=== PATIENT | male | born 1985 | race Caucasian/White ===

== ENCOUNTER 2017-11-04 16:38 | Emergency (ER) | payer SELFPAY ==
[~2017-11-04] VITALS: Ht 180.3 cm; Wt 64.2 kg
[2017-11-04 16:39] VITALS: BP 134/84
[2017-11-04] MEDS ORDERED: MAALOX/HYOSCYAMINE/LIDOCAINE 45 ML BTL PO ONE (17:00)
== END 2017-11-04 17:47 | disposition left against medical advice (07) ==
LOC: ED 17:00
DX: K21.9 Gastro-esophageal reflux disease without esophagitis (principal)
CPT/HCPCS: 99281

== ENCOUNTER 2018-01-18 03:28 | Emergency (ER) | payer SELFPAY ==
[~2018-01-18] VITALS: Ht 180.3 cm; Wt 63.1 kg
[2018-01-18 03:29] VITALS: BP 157/125
== END 2018-01-18 03:35 | disposition left against medical advice (07) ==
LOC: ED 03:33
DX: R10.9 Unspecified abdominal pain (principal); Z53.21 Procedure and treatment not carried out due to patient leaving prior to being seen by health care provider

== ENCOUNTER 2018-01-26 00:18 | Emergency (ER) | payer SELFPAY ==
[~2018-01-26] VITALS: Ht 165.1 cm; Wt 66.0 kg
[2018-01-26 00:26] VITALS: BP 122/90
== END 2018-01-26 01:14 | disposition home or self-care (01) ==
LOC: ED 00:57
DX: F10.129 Alcohol abuse with intoxication, unspecified (principal); F17.200 Nicotine dependence, unspecified, uncomplicated
CPT/HCPCS: 99283

== ENCOUNTER 2018-01-26 22:35 | Emergency (ER) | payer SELFPAY ==
[~2018-01-26] VITALS: Ht 180.3 cm; Wt 59.5 kg
[2018-01-26 22:39] VITALS: BP 126/87
== END 2018-01-26 23:10 | disposition home or self-care (01) ==
LOC: ED 23:04
DX: Z00.00 Encounter for general adult medical examination without abnormal findings (principal); F10.20 Alcohol dependence, uncomplicated
CPT/HCPCS: 99283

== ENCOUNTER 2018-07-01 06:03 | Emergency (ER) | payer OTHER ==
[~2018-07-01] VITALS: Ht 180.3 cm; Wt 59.5 kg
[2018-07-01 06:10] VITALS: BP 129/77
== END 2018-07-01 10:02 | disposition home or self-care (01) ==
LOC: ED 09:30
DX: S00.03XA Contusion of scalp, initial encounter (principal); F10.10 Alcohol abuse, uncomplicated; W19.XXXA Unspecified fall, initial encounter; Y93.89 Activity, other specified; Y92.410 Unspecified street and highway as the place of occurrence of the external cause; Y99.8 Other external cause status
CPT/HCPCS: 70450; 70486; 99284

== ENCOUNTER 2018-07-02 02:33 | Emergency (ER) | payer OTHER ==
[~2018-07-02] VITALS: Ht 180.3 cm; Wt 62.0 kg
[2018-07-02 02:35] VITALS: BP 136/84
== END 2018-07-02 03:51 | disposition left against medical advice (07) ==
LOC: ED 03:44
DX: R51 Headache (principal); Z53.21 Procedure and treatment not carried out due to patient leaving prior to being seen by health care provider

== ENCOUNTER 2018-07-06 20:51 | Emergency (ER) | payer OTHER ==
[2018-07-06 20:54] VITALS: BP 134/88
== END 2018-07-06 21:05 | disposition left against medical advice (07) ==
LOC: ED 20:55
DX: R51 Headache (principal); Z53.21 Procedure and treatment not carried out due to patient leaving prior to being seen by health care provider

== ENCOUNTER 2018-07-09 22:09 | Emergency (ER) | payer OTHER ==
[~2018-07-09] VITALS: Ht 180.3 cm; Wt 62.5 kg
[2018-07-09 22:11] VITALS: BP 133/88
== END 2018-07-09 22:48 | disposition home or self-care (01) ==
LOC: ED 22:42
DX: R19.7 Diarrhea, unspecified (principal); Z72.9 Problem related to lifestyle, unspecified; F17.200 Nicotine dependence, unspecified, uncomplicated
CPT/HCPCS: 99281

== ENCOUNTER 2018-07-17 10:40 | Emergency (ER) | payer SELFPAY ==
[~2018-07-17] VITALS: Ht 180.3 cm; Wt 62.3 kg
[2018-07-17 10:58] VITALS: BP 113/79
[2018-07-17] MEDS ORDERED: ACETAMINOPHEN 500 MG TABLET PO ONE (13:30)
== END 2018-07-17 13:43 | disposition home or self-care (01) ==
LOC: ED 13:40
DX: I10 Essential (primary) hypertension (principal); F15.10 Other stimulant abuse, uncomplicated
CPT/HCPCS: 99282

== ENCOUNTER 2018-07-18 03:21 | Emergency (ER) | payer SELFPAY ==
[~2018-07-18] VITALS: Ht 180.3 cm; Wt 67.0 kg
[2018-07-18 03:25] VITALS: BP 140/95
== END 2018-07-18 03:52 | disposition home or self-care (01) ==
LOC: ED 03:40
DX: F15.10 Other stimulant abuse, uncomplicated (principal); Z72.9 Problem related to lifestyle, unspecified
CPT/HCPCS: 99283; Q0177

== ENCOUNTER 2018-07-18 04:56 | Emergency (ER) | payer SELFPAY ==
[~2018-07-18] VITALS: Ht 170.2 cm; Wt 54.5 kg
[2018-07-18 05:01] VITALS: BP 132/90
== END 2018-07-18 05:54 | disposition home or self-care (01) ==
LOC: ED 05:48
DX: F41.1 Generalized anxiety disorder (principal); F15.10 Other stimulant abuse, uncomplicated; Z72.9 Problem related to lifestyle, unspecified
CPT/HCPCS: 99284

== ENCOUNTER 2018-07-18 13:39 | Emergency (ER) | payer SELFPAY ==
[~2018-07-18] VITALS: Ht 177.8 cm; Wt 60.0 kg
[2018-07-18 13:50] VITALS: BP 132/85
[2018-07-18] MEDS ORDERED: PLEASE ENTER HEIGHT AND WEIGHT MC SCH (14:00)
== END 2018-07-18 15:05 | disposition home or self-care (01) ==
LOC: ED 14:45
DX: F41.1 Generalized anxiety disorder (principal); F15.10 Other stimulant abuse, uncomplicated; Z72.9 Problem related to lifestyle, unspecified; F17.200 Nicotine dependence, unspecified, uncomplicated
CPT/HCPCS: 99284; Q0177

== ENCOUNTER 2018-07-20 00:41 | Emergency (ER) | payer SELFPAY ==
[~2018-07-20] VITALS: Ht 165.1 cm; Wt 60.4 kg
[2018-07-20 00:44] VITALS: BP 119/79
[2018-07-20] MEDS ORDERED: BACITRACIN ZINC OINT 500U/GM, 0.9 GM ONE (01:09)
[2018-07-20] MEDS ORDERED: IBUPROFEN 200 MG TABLET PO ONE (01:30)
[2018-07-20] MEDS ORDERED: DIPHENHYDRAMINE 25 MG CAPSULE PO ONE (01:30)
== END 2018-07-20 01:28 | disposition home or self-care (01) ==
LOC: ED 00:53
DX: G43.C1 Periodic headache syndromes in child or adult, intractable (principal); Z72.9 Problem related to lifestyle, unspecified; F41.1 Generalized anxiety disorder
CPT/HCPCS: 99283

== ENCOUNTER 2018-07-22 00:10 | Emergency (ER) | payer OTHER ==
[~2018-07-22] VITALS: Ht 170.2 cm; Wt 61.2 kg
[2018-07-22 00:12] VITALS: BP 119/79
[2018-07-22] MEDS ORDERED: ACETAMINOPHEN 325 MG TABLET ONE (00:22)
[2018-07-22] MEDS ORDERED: ACETAMINOPHEN 325 MG TABLET PO ONE (00:30)
== END 2018-07-22 00:35 | disposition home or self-care (01) ==
LOC: ED 00:30
DX: S00.93XA Contusion of unspecified part of head, initial encounter (principal); S40.012A Contusion of left shoulder, initial encounter; F41.1 Generalized anxiety disorder; Z72.9 Problem related to lifestyle, unspecified; X58.XXXA Exposure to other specified factors, initial encounter; Y93.89 Activity, other specified; Y92.89 Other specified places as the place of occurrence of the external cause; Y99.8 Other external cause status
CPT/HCPCS: 99283

== ENCOUNTER 2018-07-22 21:48 | Emergency (ER) | payer OTHER ==
[~2018-07-22] VITALS: Ht 180.3 cm; Wt 59.5 kg
[2018-07-22] MEDS ORDERED: ALBUTEROL/IPRATROPIUM 2.5MG/0.5MG, 3 ML ONE (22:51)
== END 2018-07-22 22:58 | disposition left against medical advice (07) ==
LOC: ED 22:40
DX: L98.9 Disorder of the skin and subcutaneous tissue, unspecified (principal); Z53.21 Procedure and treatment not carried out due to patient leaving prior to being seen by health care provider

== ENCOUNTER 2018-07-23 07:46 | Emergency (ER) | payer OTHER ==
[~2018-07-23] VITALS: Ht 180.3 cm; Wt 60.2 kg
== END 2018-07-23 07:55 | disposition left against medical advice (07) ==
LOC: ED 07:48
DX: R68.89 Other general symptoms and signs (principal); Z53.21 Procedure and treatment not carried out due to patient leaving prior to being seen by health care provider

== ENCOUNTER 2018-07-23 18:02 | Emergency (ER) | payer OTHER ==
[~2018-07-23] VITALS: Ht 180.3 cm; Wt 54.0 kg
[2018-07-23 18:10] VITALS: BP 139/76
[2018-07-23] MEDS ORDERED: ACETAMINOPHEN 500 MG TABLET ONE (18:28)
[2018-07-23] MEDS ORDERED: ACETAMINOPHEN 500 MG TABLET PO ONE (18:30)
== END 2018-07-23 19:23 | disposition home or self-care (01) ==
LOC: ED 19:00
DX: R07.89 Other chest pain (principal); F15.10 Other stimulant abuse, uncomplicated; F17.200 Nicotine dependence, unspecified, uncomplicated
CPT/HCPCS: 71045; 93005; 99284

== ENCOUNTER 2018-07-26 01:27 | Emergency (ER) | payer OTHER ==
[~2018-07-26] VITALS: Ht 170.2 cm; Wt 71.0 kg
[2018-07-26 01:29] VITALS: BP 132/88
[2018-07-26] MEDS ORDERED: ACETAMINOPHEN 500 MG TABLET PO ONE (02:00)
[2018-07-26] MEDS ORDERED: ACETAMINOPHEN 500 MG TABLET ONE (02:02)
== END 2018-07-26 02:18 | disposition home or self-care (01) ==
LOC: ED 01:31
DX: G44.319 Acute post-traumatic headache, not intractable (principal); F17.200 Nicotine dependence, unspecified, uncomplicated
CPT/HCPCS: 99283

== ENCOUNTER 2018-07-27 01:41 | Emergency (ER) | payer OTHER | END 2018-07-27 01:48 | disposition left against medical advice (07) | LOC: ED 01:42 | DX: R07.2 Precordial pain (principal); Z53.21 Procedure and treatment not carried out due to patient leaving prior to being seen by health care provider ==

== ENCOUNTER 2018-08-02 14:40 | Emergency (ER) | payer SELFPAY ==
[~2018-08-02] VITALS: Ht 167.6 cm; Wt 70.0 kg
[2018-08-02 14:47] VITALS: BP 124/89
[2018-08-02] MEDS ORDERED: OXYMETAZOLINE NASAL SPRAY 0.05%, 15ML ONE (14:54)
== END 2018-08-02 15:28 | disposition home or self-care (01) ==
LOC: ED 15:22
DX: R04.0 Epistaxis (principal); F41.9 Anxiety disorder, unspecified
CPT/HCPCS: 30901; 99284

== ENCOUNTER 2018-08-07 02:01 | Emergency (ER) | payer OTHER | END 2018-08-07 02:05 | disposition left against medical advice (07) | LOC: ED 02:02 | DX: Z53.21 Procedure and treatment not carried out due to patient leaving prior to being seen by health care provider (principal) ==

== ENCOUNTER 2018-09-05 01:56 | Emergency (ER) | payer SELFPAY | END 2018-09-05 02:05 | disposition home or self-care (01) | LOC: ED 02:02 | DX: Z02.9 Encounter for administrative examinations, unspecified (principal) ==

== ENCOUNTER 2018-09-06 17:14 | Emergency (ER) | payer OTHER | END 2018-09-06 17:35 | disposition left against medical advice (07) | LOC: ED 17:23 | DX: F15.90 Other stimulant use, unspecified, uncomplicated (principal); Z53.21 Procedure and treatment not carried out due to patient leaving prior to being seen by health care provider ==

== ENCOUNTER 2018-10-02 19:27 | Emergency (ER) | payer SELFPAY ==
[~2018-10-02] VITALS: Ht 172.7 cm; Wt 60.4 kg
[2018-10-02 19:30] VITALS: BP 119/74
--- NOTE | 2018-10-02 20:30 | NUR ---
called pt to room from lobby, no answer.
--- NOTE | 2018-10-02 20:45 | NUR ---
called pt to room from lobby, no answer.
== END 2018-10-02 20:48 | disposition left against medical advice (07) ==
LOC: ED 20:42
DX: F15.90 Other stimulant use, unspecified, uncomplicated (principal)
CPT/HCPCS: 99283

== ENCOUNTER 2018-10-04 00:30 | Emergency (ER) | payer SELFPAY ==
--- NOTE | 2018-10-04 00:34 | NUR ---
pt went to the restroom before triage.
== END 2018-10-04 00:37 | disposition left against medical advice (07) ==
LOC: ED 00:31
DX: Z53.21 Procedure and treatment not carried out due to patient leaving prior to being seen by health care provider (principal)

== ENCOUNTER 2018-10-04 09:49 | Emergency (ER) | payer SELFPAY ==
[~2018-10-04] VITALS: Ht 180.3 cm; Wt 56.8 kg
[2018-10-04 09:51] VITALS: BP 134/78
--- NOTE | 2018-10-04 10:57 | NUR ---
pt to Xray in NAD
--- NOTE | 2018-10-04 11:08 | NUR ---
returned from Xray
== END 2018-10-04 11:33 | disposition home or self-care (01) ==
LOC: ED 10:01
DX: S76.111A Strain of right quadriceps muscle, fascia and tendon, initial encounter (principal); F41.1 Generalized anxiety disorder; F17.200 Nicotine dependence, unspecified, uncomplicated; X58.XXXA Exposure to other specified factors, initial encounter; Y93.89 Activity, other specified; Y92.89 Other specified places as the place of occurrence of the external cause; Y99.8 Other external cause status
CPT/HCPCS: 99283

== ENCOUNTER 2018-10-07 17:57 | Emergency (ER) | payer SELFPAY ==
--- NOTE | 2018-10-07 19:32 | NUR ---
PATIENT NOT IN THE LOBBY
== END 2018-10-07 19:35 | disposition left against medical advice (07) ==
LOC: ED 18:59
DX: F22 Delusional disorders (principal); Z53.21 Procedure and treatment not carried out due to patient leaving prior to being seen by health care provider

== ENCOUNTER 2018-10-10 17:17 | Emergency (ER) | payer SELFPAY ==
[~2018-10-10] VITALS: Ht 180.3 cm; Wt 65.0 kg
[2018-10-10 17:24] VITALS: BP 132/87
--- NOTE | 2018-10-10 17:24 | NUR ---
PT HERE FOR CHEST PAIN X 2 DAYS. PT REPORTS HE WAS SEEN HERE YESTERDAY FOR SAME SYMPTOMS. PT REPORTS HE HAS DRANK 3 PINTS OF ETOH TODAY. PT ON ARRIVAL HAS NO CHEST PAIN, JUST WOULD LIKE TO SLEEP. PT REPORTS THAT HE DOES THIS AND GETS INTOXICATED ON A REGULAR BASIS AND LIKES TO GO TO THE ED. PT IN IN NADN AND DOES HAVE DRY BLOOD AROUND NOSE BUT PER PT HE HAS CHRONIC BLODDY NOSES. PT CONNECTED TO ALL MONITORS AND CALL LIGHT IN REACH. EKG COMPLETED.
--- NOTE | 2018-10-10 17:39 | NUR ---
TASK RN: Pt refusing all lab work at this time. ED aware.
--- NOTE | 2018-10-10 17:48 | NUR ---
Patient given discharge instructions and they have confirmed that they understand the instructions. Patient ambulatory with steady gait. Pt left with all personal belongings.
== END 2018-10-10 17:52 | disposition home or self-care (01) ==
LOC: ED 17:32
DX: R07.9 Chest pain, unspecified (principal); Z72.9 Problem related to lifestyle, unspecified; F15.10 Other stimulant abuse, uncomplicated
CPT/HCPCS: 71045; 93005; 99283

== ENCOUNTER 2018-10-10 21:17 | Emergency (ER) | payer SELFPAY ==
[~2018-10-10] VITALS: Ht 177.8 cm; Wt 80.0 kg
[2018-10-10 21:21] VITALS: BP 136/86
== END 2018-10-10 21:57 | disposition home or self-care (01) ==
LOC: ED 21:50
DX: F15.10 Other stimulant abuse, uncomplicated (principal)
CPT/HCPCS: 99283

== ENCOUNTER 2018-10-15 17:13 | Emergency (ER) | payer SELFPAY ==
[~2018-10-15] VITALS: Ht 180.3 cm; Wt 60.0 kg
[2018-10-15] MEDS ORDERED: LORazepam 1MG TABLET ONE (17:37)
[2018-10-15] MEDS ORDERED: LORazepam 1MG TABLET PO ONE (18:00)
[2018-10-15 18:09] VITALS: BP 139/94
--- NOTE | 2018-10-15 18:10 | NUR ---
Patient/Caregiver given discharge instructions and they have confirmed that they understand the instructions. Patient ambulatory with steady gait, A&OX4. PT LEFT WITH ALL PERSONAL BELONGINGS,.
== END 2018-10-15 18:12 | disposition home or self-care (01) ==
LOC: ED 17:46
DX: F41.1 Generalized anxiety disorder (principal); Z72.9 Problem related to lifestyle, unspecified; F10.20 Alcohol dependence, uncomplicated; F15.20 Other stimulant dependence, uncomplicated
CPT/HCPCS: 99284

== ENCOUNTER 2018-10-16 21:37 | Emergency (ER) | payer OTHER ==
[~2018-10-16] VITALS: Ht 167.6 cm; Wt 63.6 kg
[2018-10-16 21:39] VITALS: BP 129/84
[2018-10-16] MEDS ORDERED: LORazepam 1MG TABLET ONE (22:32)
[2018-10-16] MEDS ORDERED: LORazepam 1MG TABLET PO ONE (23:00)
== END 2018-10-16 23:02 | disposition left against medical advice (07) ==
LOC: ED 22:56
DX: F15.10 Other stimulant abuse, uncomplicated (principal); R00.2 Palpitations
CPT/HCPCS: 93005; 99283

== ENCOUNTER 2018-10-18 18:50 | Emergency (ER) | payer SELFPAY ==
[~2018-10-18] VITALS: Ht 180.3 cm; Wt 65.4 kg
[2018-10-18 18:57] VITALS: BP 140/71
--- NOTE | 2018-10-18 19:26 | NUR ---
PT TO ROOM FROM LOBBY AT THIS TIME.
--- NOTE | 2018-10-18 19:46 | NUR ---
LATE ENTRY FOR 1930 PT AMBULATORY FROM LOBBY TO ROOM. UPRIGHT STEADY GAIT, NAD NOTED. PT CHANGED INTO GOWN AND SITTING UPRIGHT ON GURNEY. PT DENIES CP AT THIS TIME. PT DRAWING ON PAPER WITH MARKER.
--- NOTE | 2018-10-18 20:24 | NUR ---
GIVEN DC INSTRUCTION PT AMBUALTED TO CHECK OUT
== END 2018-10-18 20:26 | disposition home or self-care (01) ==
LOC: ED 19:31
DX: R07.89 Other chest pain (principal); R00.2 Palpitations; F17.200 Nicotine dependence, unspecified, uncomplicated
CPT/HCPCS: 99282; Q0177

== ENCOUNTER 2018-11-27 10:41 | Emergency (ER) | payer SELFPAY ==
[~2018-11-27] VITALS: Ht 180.3 cm; Wt 61.5 kg
[2018-11-27 10:49] VITALS: BP 119/90
--- NOTE | 2018-11-27 11:23 | NUR ---
PT REQUEST TO LEAVE. DISCUSSED POC WITH PT. PT VERBALIZES UNDERSTANDING BUT PERSISTENT IN WANTING DC. DISCUSSED WITH DR ESQUIVEL. PT SIGNED AMA FORM AND ESCORTED TO LOBBY
== END 2018-11-27 11:25 | disposition left against medical advice (07) ==
LOC: ED 11:19
DX: F15.10 Other stimulant abuse, uncomplicated (principal); F41.9 Anxiety disorder, unspecified
CPT/HCPCS: 93005; 99283

== ENCOUNTER 2018-11-27 12:25 | Emergency (ER) | payer SELFPAY ==
[~2018-11-27] VITALS: Ht 180.3 cm; Wt 60.4 kg
[2018-11-27 12:29] VITALS: BP 133/88
--- NOTE | 2018-11-27 12:32 | NUR ---
ERP INTERVENED TRIAGE AND ASKED THAT WE TAKE AN EKG IN TRIAGE, AND D/C FROM HERE IF IT IS A NORMAL READING.
== END 2018-11-27 12:44 | disposition left against medical advice (07) ==
LOC: ED 12:38
DX: F41.1 Generalized anxiety disorder (principal); F15.10 Other stimulant abuse, uncomplicated
CPT/HCPCS: 99284

== ENCOUNTER 2018-12-03 14:13 | Emergency (ER) | payer SELFPAY ==
[~2018-12-03] VITALS: Ht 180.3 cm; Wt 66.0 kg
--- NOTE | 2018-12-03 14:26 | NUR ---
PT BIB [facility], PT DID METH 7 MINUTES AGO AND IS NOW COMPLAING OF CP AND FAST HEART RATE. 12 LEAD WNL. PT IS ALERT, ORIENTED, WITH NAD. PT IS CONNECTED TO THE MONITOR. CALL LIGHT WITHIN REACH. MD AT BEDSIDE.
--- NOTE | 2018-12-03 14:34 | NUR ---
PT DISCONNECTED SELF FROM MONITOR AND WAS FOUND WALKING IN THE [place]. ADVISED PT TO GET BACK INTO BED. PT GOT BACK IN BED AND PLACED BACK ON THE MONITOR.
--- NOTE | 2018-12-03 14:37 | NUR ---
PT GIVEN WATER TO DRINK, OKAY PER .
--- NOTE | 2018-12-03 14:53 | NUR ---
PT TAKEN TO X RAY.
[2018-12-03 15:00] LABS: BASOPHILS # (AUTO) 0.01 x10^3/uL (0-0.1); BASOPHILS % (AUTO) 0 % (0-1); EOSINOPHILS # (AUTO) 0.01 x10^3/uL (0-0.4); EOSINOPHILS % (AUTO) 0 % (1-7); LYMPHOCYTES # (AUTO) 1.14 x10^3/uL (1-3.4); LYMPHOCYTES % (AUTO) 11 % (22-44); MD NO; MEAN CORPUSCULAR HEMOGLOBIN 26.6 pg (27.5-34.5); MEAN CORPUSCULAR VOLUME 80.5 fL (81-97); MEAN PLATELET VOLUME 7.1 fL (7.4-10.4); MONOCYTES # (AUTO) 0.69 x10^3/uL (0.2-0.8); MONOCYTES % (AUTO) 6 % (2-9); NEUTROPHILS % (AUTO) 83 % (42-75); PLATELET COUNT 275 x10^3/uL (130-400); RED BLOOD COUNT 4.07 x10^6/uL (4.38-5.82); RED CELL DISTRIBUTION WIDTH 20.2 % (9.4-14.8)
[2018-12-03 15:10] LABS: ALANINE AMINOTRANSFERASE 44 U/L (12-78); ALBUMIN 3.2 g/dL (3.4-5.0); ANION GAP 11 mmol/L (5-15); CALCIUM 8.4 mg/dL (8.5-10.1); CHLORIDE 105 mmol/L (98-107); CREATININE 0.76 mg/dL (0.7-1.3)
[2018-12-03 15:14] LABS: ALKALINE PHOSPHATASE 105 U/L (45-117); BILIRUBIN,TOTAL 0.4 mg/dL (0.2-1.0); TOTAL PROTEIN 7.2 g/dL (6.4-8.2)
[2018-12-03 15:21] VITALS: BP 113/71
--- NOTE | 2018-12-03 15:21 | NUR ---
TECH AT BEDSIDE FOR EKG.
[2018-12-03] MEDS ORDERED: AZITHROMYCIN 250 MG TABLET PO ONE (15:30)
[2018-12-03] MEDS ORDERED: CEFTRIAXONE 1,000 MG IM ONE (15:30)
[2018-12-03] MEDS ORDERED: SODIUM CHLORIDE 0.9% 1,000ML IVBOLUS ONE (15:30)
[2018-12-03] MEDS ORDERED: SODIUM CHLORIDE FLUSH 10ML SYR IVF ONE (15:30)
[2018-12-03] MEDS ORDERED: CEFTRIAXONE 1,000 MG ONE (15:37)
[2018-12-03] MEDS ORDERED: AZITHROMYCIN 250 MG TABLET ONE (15:37)
[2018-12-03] MEDS ORDERED: LIDOCAINE-MPF 1%, 5ML ONE (15:39)
--- NOTE | 2018-12-03 15:47 | NUR ---
PT REFUSED IM SHOT. INFORMED.
[2018-12-03] MEDS ORDERED: CEFTRIAXONE PMX 1GM/50ML 50 ML ONE (15:49)
--- NOTE | 2018-12-03 15:53 | NUR ---
PT REFUSED IV ABX.
--- NOTE | 2018-12-03 15:58 | NUR ---
BOTH THE NURSE AND THE DOCTOR EXPLAINED TO THE PT MANY TIMES THE IMPORTANCE OF HIM TAKING THE ABX. PT STILL REFUSES TO TAKE ABX. PT WANTS TO SIGN OUT AMA.
--- NOTE | 2018-12-03 15:59 | NUR ---
DRUM BUILDER AT BEDSIDE.
[2018-12-03] MEDS ORDERED: CEFTRIAXONE PMX 1GM/50ML 50 ML IVPB ONE (16:00)
--- NOTE | 2018-12-03 16:17 | NUR ---
PT SIGNED AMA PAPERWORK. PT IS A&o x 4, PT STATED THAT HE IS GOING TO CALL HIS MOM. PT AMBULATED TO THE BATHROOM WITH STEADY GAIT. PT IS GETTING DRESSED AND TOLD TO WAIT FOR HIS PRESCRIPTIONS BEFORE LEAVING. PT UNDERSTANDS AND WILL WAIT.
--- NOTE | 2018-12-03 16:39 | NUR ---
Patient given discharge instructions AND PRESCRIPTION and they have confirmed that they understand the instructions. Patient ambulatory with steady gait.
== END 2018-12-03 16:41 | disposition left against medical advice (07) ==
LOC: ED 15:30
DX: A41.9 Sepsis, unspecified organism (principal); J15.9 Unspecified bacterial pneumonia; F41.1 Generalized anxiety disorder; Z72.9 Problem related to lifestyle, unspecified
CPT/HCPCS: 36415; 71046; 80053; 83605; 84145; 85025; 87040; 93005; 96365; 96366; 99284; J0696; J7030

== ENCOUNTER 2018-12-21 16:44 | Emergency (ER) | payer SELFPAY ==
[~2018-12-21] VITALS: Ht 180.3 cm; Wt 60.1 kg
--- NOTE | 2018-12-21 17:03 | NUR ---
CONTACT WITH PT, 33 YR OLD MALE HERE WITH C/O "JUST BAD CP AND MY ANXIETY IS REAL HIGH. I THINK I HAVE AN EAR INFECTION TOO" PT IN NO ACUTE DISTRESS. CHARGER OPERATOR HELPER AT BEDSIDE TO DRAW LABS.
[2018-12-21 17:14] LABS: BASOPHILS # (AUTO) 0.13 x10^3/uL (0-0.1); BASOPHILS % (AUTO) 1 % (0-1); EOSINOPHILS % (AUTO) 0 % (1-7); LYMPHOCYTES # (AUTO) 1.52 x10^3/uL (1-3.4); LYMPHOCYTES % (AUTO) 13 % (22-44); MD NO; MEAN CORPUSCULAR HEMOGLOBIN 26.8 pg (27.5-34.5); MEAN CORPUSCULAR VOLUME 81.3 fL (81-97); MEAN PLATELET VOLUME 7.7 fL (7.4-10.4); MONOCYTES # (AUTO) 0.71 x10^3/uL (0.2-0.8); MONOCYTES % (AUTO) 6 % (2-9); NEUTROPHILS # (AUTO) 9.35 x10^3/uL (1.8-6.8); NEUTROPHILS % (AUTO) 80 % (42-75); PLATELET COUNT 463 x10^3/uL (130-400); RED BLOOD COUNT 4.71 x10^6/uL (4.38-5.82); RED CELL DISTRIBUTION WIDTH 18.9 % (9.4-14.8)
--- NOTE | 2018-12-21 17:16 | NUR ---
PT REMOVING MONITORING EQUIPMENT, GETTING HEAD WET IN THE SINK BECAUSE "MY BLOOD PRESSURE IS TOO HIGH" DISCUSSED WITH PT THAT BP 120/84 AND IS OK. ENC PT TO LEAVE MONITORING EQUIPMENT IN PLACE.
[2018-12-21 17:27] LABS: ALANINE AMINOTRANSFERASE 30 U/L (12-78); ALBUMIN 4.2 g/dL (3.4-5.0); ANION GAP 10 mmol/L (5-15); CALCIUM 9.2 mg/dL (8.5-10.1); CHLORIDE 103 mmol/L (98-107)
[2018-12-21 17:32] LABS: ALKALINE PHOSPHATASE 114 U/L (45-117); BILIRUBIN,TOTAL 0.6 mg/dL (0.2-1.0); CREATININE 1.11 mg/dL (0.7-1.3); TROPONIN I < 0.015 ng/mL (0.000-0.045)
[2018-12-21] MEDS ORDERED: ACETAMINOPHEN 325 MG TABLET PO ONE (19:00)
--- NOTE | 2018-12-21 19:07 | NUR ---
REPORT TO BELINDA LOMELI
[2018-12-21] MEDS ORDERED: ACETAMINOPHEN 325 MG TABLET ONE (19:19)
--- NOTE | 2018-12-21 19:22 | NUR ---
Patient given discharge instructions and they have confirmed that they understand the instructions. Patient ambulatory with steady gait.
[2018-12-21 19:23] VITALS: BP 122/71
== END 2018-12-21 19:26 | disposition home or self-care (01) ==
LOC: ED 18:22
DX: R07.89 Other chest pain (principal); F15.10 Other stimulant abuse, uncomplicated; F11.10 Opioid abuse, uncomplicated
CPT/HCPCS: 36415; 80053; 84484; 85025; 93005; 99284

== ENCOUNTER 2018-12-21 20:11 | Emergency (ER) | payer SELFPAY ==
[2018-12-21 20:12] VITALS: BP 114/82
== END 2018-12-21 21:32 | disposition home or self-care (01) ==
LOC: ED 21:00
DX: F15.10 Other stimulant abuse, uncomplicated (principal); F11.10 Opioid abuse, uncomplicated; R07.89 Other chest pain
CPT/HCPCS: 99283

== ENCOUNTER 2018-12-22 14:09 | Emergency (ER) | payer SELFPAY ==
[2018-12-22 14:13] VITALS: BP 117/83
--- NOTE | 2018-12-22 14:13 | NUR ---
pt biba, states he started feeling "clammy and sweaty," today, states hands became red starting today. no redness or swelling noted. +etoh today. last meth use yesterday. pt denies pain all monitors in place. bed locked and in lowest position. call light in reach, pt instructed to call and await staff assist prior to getting out of bed. COURTNEY Rushing at bedside to assess.
[2018-12-22] MEDS ORDERED: LORazepam 1MG TABLET PO ONE ×2 (14:30→15:00)
[2018-12-22] MEDS ORDERED: LORazepam 1MG TABLET ONE (14:45)
--- NOTE | 2018-12-22 14:56 | NUR ---
TASK RN: Provided pt medication per verbal order from ED PA and per EMAR. Pt appreciative.
--- NOTE | 2018-12-22 15:00 | NUR ---
Patient given discharge instructions and they have confirmed that they understand the instructions. Patient ambulatory with steady gait. Pt left with prescrition, discharge paperwork, and all personal belongings.
[2018-12-22] MEDS ORDERED: NALOXONE 1 MG/ML, 2ML ONE (15:43)
== END 2018-12-22 15:05 | disposition home or self-care (01) ==
LOC: ED 14:35
DX: F10.20 Alcohol dependence, uncomplicated (principal); F15.20 Other stimulant dependence, uncomplicated
CPT/HCPCS: 93005; 99283

== ENCOUNTER 2019-01-25 18:41 | Emergency (ER) | payer OTHER ==
[~2019-01-25] VITALS: Ht 180.3 cm; Wt 66.0 kg
[2019-01-25 18:55] VITALS: BP 115/78
--- NOTE | 2019-01-25 18:59 | NUR ---
PATIENT BIB [facility] FOR SOB, HX OF ASTHMA, SKIN PINK WARM DRY, NAD NOTED. AWAITING MD ORDERS, CALL LIGHT WITHIN REACH.
--- NOTE | 2019-01-25 19:00 | NUR ---
PATIENT ELOPED PRIOR TO SEEING MD. AMBULATED WITH STEADY GAIT TO DC DESK.
== END 2019-01-25 19:03 | disposition left against medical advice (07) ==
LOC: ED 18:57
DX: R06.02 Shortness of breath (principal)
CPT/HCPCS: 99283

== ENCOUNTER 2020-04-04 01:07 | Inpatient (IN) | payer MEDICAID, OTHER ==
[~2020-04-04] VITALS: Ht 180.3 cm; Wt 61.7 kg
[2020-04-04] MEDS ORDERED: DIPH,PERTUSS(ACELL),TET VAC/PF 0.5 ML IM-VACC ONE ×2 (01:30→01:40)
[2020-04-04] MEDS ORDERED: LIDOCAINE-MPF 1%, 5ML INFIL ONE (01:30)
[2020-04-04] MEDS ORDERED: LIDOCAINE-MPF 1%, 2ML ONE (01:40)
[2020-04-04 01:56] LABS: BASOPHILS # (AUTO) 0.04 x10^3/uL (0-0.1); BASOPHILS % (AUTO) 0 % (0-1); EOSINOPHILS # (AUTO) 0.01 x10^3/uL (0-0.4); EOSINOPHILS % (AUTO) 0 % (1-7); LYMPHOCYTES # (AUTO) 1.52 x10^3/uL (1-3.4); LYMPHOCYTES % (AUTO) 11 % (22-44); MD NO; MEAN CORPUSCULAR HEMOGLOBIN 29.4 pg (27.5-34.5); MEAN CORPUSCULAR HGB CONC 33.7 g/dL (33.2-36.2); MEAN CORPUSCULAR VOLUME 87.3 fL (81-97); MEAN PLATELET VOLUME 8.8 fL (7.4-10.4); MONOCYTES % (AUTO) 4 % (2-9); NEUTROPHILS # (AUTO) 11.31 x10^3/uL (1.8-6.8); NEUTROPHILS % (AUTO) 84 % (42-75); PLATELET COUNT 236 x10^3/uL (130-400); RED BLOOD COUNT 5.19 x10^6/uL (4.38-5.82)
[2020-04-04] MEDS ORDERED: OLANZAPINE 10 MG TABLET ONE (01:58)
[2020-04-04] MEDS ORDERED: LORazepam 1MG TABLET ONE (01:59)
[2020-04-04] MEDS ORDERED: OLANZAPINE 10 MG TABLET PO ONE (02:00)
[2020-04-04] MEDS ORDERED: LORazepam 1MG TABLET PO ONE (02:00)
[2020-04-04 02:03] LABS: ALANINE AMINOTRANSFERASE 109 U/L (12-78); ALBUMIN 4.5 g/dL (3.4-5.0); ANION GAP 10 mmol/L (5-15); CHLORIDE 107 mmol/L (98-107)
[2020-04-04 02:08] LABS: ALKALINE PHOSPHATASE 102 U/L (45-117); BILIRUBIN,TOTAL 1.5 mg/dL (0.2-1.0); T4 (THYROXINE) 12.8 mcg/dL (4.5-12.1); TOTAL PROTEIN 8.1 g/dL (6.4-8.2)
[2020-04-04 02:09] LABS: TROPONIN I 0.136 ng/mL (0.000-0.045)
[2020-04-04] MEDS ORDERED: ASPIRIN 325 MG TABLET ONE (02:19)
[2020-04-04] MEDS ORDERED: MAGNESIUM SULFATE 1 GM, THIAMINE 100 MG, FOLIC ACID 1 MG, MVI ADULT 10 ML in SODIUM CHL... IV ONE (02:30)
[2020-04-04] MEDS ORDERED: LORazepam 2 MG/ML, 1ML IVPush PRN (02:30)
[2020-04-04] MEDS ORDERED: ASPIRIN 325 MG TABLET PO ONE (02:30)
--- NOTE | 2020-04-04 02:33 | NUR ---
PIV ESTABLIHSED, PT REFUSING ASPIRIN AT THIS TIME, EDUCATION PROVIDED ON PURPOSE, PT STILL REFUSES
--- NOTE | 2020-04-04 02:35 | NUR ---
Banana bag requested from pharmacy
[2020-04-04] MEDS ORDERED: SODIUM CHLORIDE 0.9% 1,000 ML IV SCH (03:07)
[2020-04-04] MEDS ORDERED: morphine SULFATE 10 MG/ML, 1ML IVPush PRN (03:30)
[2020-04-04] MEDS ORDERED: POLYETHYLENE GLYCOL 17 GM PACKET PO PRN (03:30)
[2020-04-04] MEDS ORDERED: DOCUSATE 100 MG CAPSULE PO PRN (03:30)
[2020-04-04] MEDS ORDERED: hydrALAzine 20 MG/ML, 1ML IVPush PRN (03:30)
[2020-04-04] MEDS ORDERED: PROMETHAZINE 25 MG/ML, 1ML IM PRN (03:30)
[2020-04-04] MEDS ORDERED: ONDANSETRON ODT 4 MG PO PRN (03:30)
[2020-04-04] MEDS ORDERED: OXYcodone IR 5MG TABLET PO PRN (03:30)
[2020-04-04] MEDS ORDERED: BISACODYL 10 MG SUPP PR PRN (03:30)
[2020-04-04] MEDS ORDERED: NICOTINE 7 MG/24 HR PATCH.TD24 TD SCH (03:30)
[2020-04-04] MEDS ORDERED: ONDANSETRON 2MG/ML, 2ML IVPush PRN (03:30)
[2020-04-04 03:46] LABS: FREE T4 (FREE THYROXINE) 1.5 ng/dL (0.76-1.46)
--- NOTE | 2020-04-04 04:32 | NUR ---
Pt resting in bed with eyes closed, appears comfortable with NAD noted, VSS, call cano within reach, bed locked in lowest position, will continue to monitor
[2020-04-04 06:00] VITALS: BP 106/56
--- NOTE | 2020-04-04 06:29 | NUR ---
Assisted builder's labourer with holding pt arm to obtain morning labs. Pt continues to curl onto side and not responding to commands. Pt responds to name but only mumbles
[2020-04-04 07:00] LABS: TROPONIN I 0.086 ng/mL (0.000-0.045)
[2020-04-04] MEDS ORDERED: ASPIRIN 81 MG TABLET EC PO SCH (07:00)
--- NOTE | 2020-04-04 07:03 | NUR ---
Report to Yossi LOMELI
--- NOTE | 2020-04-04 07:08 | NUR ---
SBAR HAND-OFF REPORT RECEIVED FROM YANI MURRAY. ASSUMING CARE OF PATIENT. PATIENT IS SLEEPING AT THIS TIME. CHEST RISE AND FALL OBSERVED. SPO2=98%. WARM BLANKET PROVIDED.
[2020-04-04] MEDS ORDERED: ASPIRIN 81 MG TABLET EC ONE (08:27)
--- NOTE | 2020-04-04 09:55 | NUR ---
SBAR TELEPHONE HAND-OFF REPORT GIVEN TO YANI CHARLES ON TELE.
[2020-04-04 10:11] LABS: TROPONIN I 0.065 ng/mL (0.000-0.045)
[2020-04-04 10:55] LABS: CHOL/HDL RATIO 2.7; LDL/HDL RATIO 1.3 (0.5-3.0)
[2020-04-04] MEDS ORDERED: LORazepam 1MG TABLET PO PRN ×3 (12:00)
[2020-04-04] MEDS ORDERED: LORazepam 0.5MG TABLET PO PRN (12:00)
[2020-04-04] MEDS ORDERED: LORazepam 2 MG/ML, 1ML IV PRN ×3 (12:00)
[2020-04-05] MEDS ORDERED: THIAMINE 200 MG in SODIUM CHLORIDE 0.9% 50 ML IV SCH (09:00)
== END 2020-04-04 12:02 | disposition left against medical advice (07) | DRG 281 ==
LOC: ED 02:57 → EDIP 03:05 → 5SO 10:34
PROVIDERS: ADMIT Internal Medicine; ATTEND Hospitalist
DX: I21.A1 Myocardial infarction type 2 (principal); F10.239 Alcohol dependence with withdrawal, unspecified; D72.823 Leukemoid reaction; F15.10 Other stimulant abuse, uncomplicated; F17.210 Nicotine dependence, cigarettes, uncomplicated; F22 Delusional disorders; F41.1 Generalized anxiety disorder; Z53.29 Procedure and treatment not carried out because of patient's decision for other reasons
CPT/HCPCS: 36415; 71046; 76700; 80053; 80061; 80307; 83036; 83735; 83880; 84436; 84439; 84443; 84484; 85025; 85379; 86704; 86705; 86706; 86708; 86709; 86803; 87340; 93005; G0378; J3411; J3475; J7030

== ENCOUNTER 2020-04-04 14:38 | Emergency (ER) | payer OTHER ==
[~2020-04-04] VITALS: Ht 180.3 cm; Wt 66.0 kg
[2020-04-04 14:45] VITALS: BP 130/80
== END 2020-04-04 15:25 | disposition home or self-care (01) ==
LOC: ED 14:45
DX: F15.129 Other stimulant abuse with intoxication, unspecified (principal); E86.0 Dehydration
CPT/HCPCS: 99283

== ENCOUNTER 2020-07-23 07:26 | Emergency (ER) | payer SELFPAY ==
[~2020-07-23] VITALS: Ht 172.7 cm; Wt 65.0 kg
[2020-07-23 07:29] VITALS: BP 126/86
--- NOTE | 2020-07-23 07:32 | NUR ---
CORNELIO RN: THIS IS A 35 YEAR OLD MALE WHO WAS BIB BY AMBULANCE DUE TO "I WANT TO GO TO PRISON, I DONT WANT TO BE OUTSIDE ANYMORE". PT DENIES SI/SA AT THIS TIME. ORDERED MEAL FOR PATIENT. REPOSITIONED FOR COMFORT.
--- NOTE | 2020-07-23 08:24 | NUR ---
MEAL TRAY PROVIDED.
--- NOTE | 2020-07-23 08:40 | NUR ---
Patient/Caregiver given discharge instructions and they have confirmed that they understand the instructions. Patient ambulatory with steady gait.
== END 2020-07-23 08:43 | disposition home or self-care (01) ==
LOC: ED 08:19
DX: F10.20 Alcohol dependence, uncomplicated (principal); F15.20 Other stimulant dependence, uncomplicated; F17.210 Nicotine dependence, cigarettes, uncomplicated; I25.2 Old myocardial infarction; Z76.0 Encounter for issue of repeat prescription; Y90.0 Blood alcohol level of less than 20 mg/100 ml
CPT/HCPCS: 99283; 99406

== ENCOUNTER 2020-09-04 01:10 | Emergency (ER) | payer SELFPAY ==
[~2020-09-04] VITALS: Ht 180.3 cm; Wt 62.0 kg
[2020-09-04 01:14] VITALS: BP 143/94
== END 2020-09-04 01:41 | disposition home or self-care (01) ==
LOC: ED 01:31
DX: R07.89 Other chest pain (principal); F15.10 Other stimulant abuse, uncomplicated; F17.210 Nicotine dependence, cigarettes, uncomplicated; Z72.9 Problem related to lifestyle, unspecified
CPT/HCPCS: 93005; 99283; 99406